=== PATIENT | male | born 1980 ===

== ENCOUNTER 2022-07-01 10:40 | Day surgery (SDC) | payer BC ==
[~2022-07-01 10:40] MED LIST: Lactated Ringers 1,000 ML IV SCH; Sodium Chloride 0.9% 10 ML Syringe FLUSH PRN; Sodium Chloride 0.9% 2.5 ML Syringe FLUSH PRN; Sodium Chloride 0.9% 20 ML SDV IV PRN
[2022-07-01] MEDS ORDERED: Propofol 200 MG/20 ML SDV ONE ×2 (12:06→12:44)
[2022-07-01] MEDS ORDERED: Lidocaine 2% 5 ML SDV ONE (12:07)
== END 2022-07-01 13:37 | disposition home or self-care (01) ==
LOC: MW.SDS 10:40
PROVIDERS: ATTEND Surgery
DX: D12.3 Benign neoplasm of transverse colon (principal); D12.0 Benign neoplasm of cecum; K29.50 Unspecified chronic gastritis without bleeding; Z98.890 Other specified postprocedural states; Z80.0 Family history of malignant neoplasm of digestive organs
CPT/HCPCS: 43239; 45380; J2704; J7120; 00813